=== PATIENT | male | born 1985 | race Caucasian/White ===

== ENCOUNTER 2019-07-30 19:53 | Inpatient (IN) | payer MEDICAID ==
[~2019-07-30] VITALS: Ht 172.7 cm; Wt 87.3 kg
[2019-07-30 20:45] LABS: BASOPHIL % 0.3 % (0-2); PLATELET COUNT 224 x10^3mcL (130-400); RED CELL DISTRIBUTION WIDTH 12.8 % (11.5-14.5)
[2019-07-30 20:51] LABS: CALCIUM 8.5 mg/dL (8.5-10.1); CARBON DIOXIDE 25.3 mmol/L (21-32); CHLORIDE SERUM 106 mmol/L (98-107); GFR1 > 60 mL/min; GLUCOSE SERUM 122 mg/dL (74-106); POTASSIUM SERUM 3.7 mmol/L (3.5-5.1); SODIUM SERUM 144 mmol/L (136-145)
[2019-07-30 20:57] LABS: ALBUMIN 3.5 g/dL (3.4-5.0); ALKALINE PHOSPHATASE 82 U/L (46-116); ALT/SGPT 57 U/L (16-63); AST/SGOT 24 U/L (15-37); BILIRUBIN TOTAL 0.23 mg/dL (0.20-1.00); TOTAL PROTEIN, SERUM 7.3 g/dL (6.4-8.2)
[2019-07-30 21:38] LABS: microscopic required? YES; urine erythrocyte 2+ (NEGATIVE)
[2019-07-30 21:51] LABS: AMPHETAMINE QUAL UR NONE DETECTED (See below)
[2019-07-31] VITALS (7 sets, daily range): BP systolic 107–120; BP diastolic 53–69
[2019-07-31 01:45] LABS: T3 TOTAL 1.22 ng/mL
[2019-07-31 01:46] LABS: FREE T4 0.94 ng/dL (0.76-1.46); FREE THYROXINE INDEX 2.7 ug/dL (1.4-4.5); T4(THYROXINE) 7.6 ug/dL (4.7-13.3)
[2019-07-31 01:48] LABS: MAGNESIUM 2.2 mg/dL (1.8-2.4)
[2019-07-31 06:30] LABS: BASOPHIL % 0.3 % (0-2); PLATELET COUNT 209 x10^3mcL (130-400)
[2019-07-31 06:49] LABS: CALCIUM 8.4 mg/dL (8.5-10.1); CHLORIDE SERUM 103 mmol/L (98-107); CREATININE SERUM 0.8 mg/dL (0.7-1.3); GFR1 > 60 mL/min; GLUCOSE SERUM 87 mg/dL (74-106); MAGNESIUM 2.1 mg/dL (1.8-2.4); PHOSPHOROUS 3.5 mg/dL (2.5-4.9); POTASSIUM SERUM 3.6 mmol/L (3.5-5.1); SODIUM SERUM 136 mmol/L (136-145)
[2019-07-31 18:14] LABS: microscopic required? YES; urine erythrocyte TRACE (NEGATIVE)
[2019-08-01 05:10] VITALS: BP 99/54
[2019-08-01 06:44] LABS: BASOPHIL % 0.3 % (0-2); PLATELET COUNT 226 x10^3mcL (130-400); RED CELL DISTRIBUTION WIDTH 13.4 % (11.5-14.5)
[2019-08-01 07:04] LABS: CALCIUM 8.8 mg/dL (8.5-10.1); CHLORIDE SERUM 107 mmol/L (98-107); CREATININE SERUM 0.7 mg/dL (0.7-1.3); GFR1 > 60 mL/min; GLUCOSE SERUM 95 mg/dL (74-106); MAGNESIUM 1.9 mg/dL (1.8-2.4); PHOSPHOROUS 3.8 mg/dL (2.5-4.9); SODIUM SERUM 143 mmol/L (136-145)
[2019-08-01 08:56] VITALS: BP 101/66
[2019-08-01] MEDS ORDERED: KEPPRA500 MG PO (10:00)
[2019-08-01 10:11] VITALS: BP 101/66
== END 2019-08-01 11:07 | disposition home or self-care (01) | DRG 53 ==
LOC: ED 19:53 → DU 07-31 00:53
PROVIDERS: Emergency Medicine; ADMIT Family Medicine
DX: G40.89 Other seizures (principal); N17.0 Acute kidney failure with tubular necrosis; S06.890S Other specified intracranial injury without loss of consciousness, sequela; V89.2XXS Person injured in unspecified motor-vehicle accident, traffic, sequela
CPT/HCPCS: 84439; G0378; G0480; J1953; J2060; J3490; J7030; Q0092